=== PATIENT | female | born 2000 | race Caucasian/White ===

== ENCOUNTER 2021-03-19 13:12 | Emergency (ER) | payer OTHER ==
[~2021-03-19] VITALS: Ht 162.6 cm; Wt 57.0 kg
[2021-03-19 14:16] LABS: MICROSCOPIC NOT IND
--- NOTE | 2021-03-19 15:05 | NUR ---
PT TO ROOM AT THIS TIME
--- NOTE | 2021-03-19 15:28 | NUR ---
PT POSTIONED TO COMFORT. ATTACHED TO MONITORS. VSS. NADN. MOTHER AND BROTHER AT BEDSIDE. AWAITING ORDERS
--- NOTE | 2021-03-19 15:28 | NUR ---
RLQ ABDOMINAL PAIN RADIATING TO FLANK X2 DAYS. DENIES PAINFUL URINATION.
--- NOTE | 2021-03-19 15:44 | NUR ---
GINA BOWEN TO BEDSIDE FOR EVALUATION.
[2021-03-19] MEDS ORDERED: ONDANSETRON 2MG/ML, 2ML ONE (16:15)
[2021-03-19] MEDS ORDERED: MORPHINE SULFATE 4 MG/ML, 1ML ONE (16:16)
[2021-03-19] MEDS ORDERED: SODIUM CHLORIDE 0.9% 1,000ML IVBOLUS ONE (16:30)
[2021-03-19] MEDS ORDERED: FAMOTIDINE 20 MG/2 ML IVPush ONE (16:30)
[2021-03-19] MEDS ORDERED: MORPHINE SULFATE 4 MG/ML, 1ML IVPush PRN (16:30)
[2021-03-19] MEDS ORDERED: ONDANSETRON 2MG/ML, 2ML IVPush ONE (16:30)
[2021-03-19 16:52] LABS: BASOPHILS % (AUTO) 0 % (0-1); EOSINOPHILS % (AUTO) 1 % (1-7); LYMPHOCYTES % (AUTO) 31 % (22-44); MD NO; MEAN CORPUSCULAR HEMOGLOBIN 31.1 pg (27.0-34.8); MEAN CORPUSCULAR HGB CONC 34.9 g/dL (32.4-35.8); MEAN PLATELET VOLUME 7.5 fL (7.4-10.4); MONOCYTES % (AUTO) 4 % (2-9); NEUTROPHILS % (AUTO) 64 % (42-75); PLATELET COUNT 288 x10^3/uL (130-400); RED BLOOD COUNT 4.95 x10^6/uL (3.82-5.3); RED CELL DISTRIBUTION WIDTH 12.9 % (9.6-15.2)
[2021-03-19 17:00] LABS: ALANINE AMINOTRANSFERASE 20 U/L (12-78); ALBUMIN 4.6 g/dL (3.4-5.0); ANION GAP 7 mmol/L (5-15); CALCIUM 9.8 mg/dL (8.5-10.1); CHLORIDE 106 mmol/L (98-107)
[2021-03-19 17:04] LABS: ALKALINE PHOSPHATASE 64 U/L (45-117); BILIRUBIN,TOTAL 1.2 mg/dL (0.2-1.0); TOTAL PROTEIN 8.2 g/dL (6.4-8.2)
[2021-03-19] MEDS ORDERED: KETAMINE 10 MG/ML, 20ML IV ONE (17:09)
[2021-03-19] MEDS ORDERED: OMNIPAQUE 350 MG/ML, 100ML BOTTLE ONE (17:27)
--- NOTE | 2021-03-19 17:56 | NUR ---
pt given ketamine as ordered and had severe anxiey and dizziness. dr. king brought to bedside. pt feels better now. vss.
[2021-03-19 18:54] VITALS: BP 94/60
--- NOTE | 2021-03-19 18:58 | NUR ---
Patientgiven discharge instructions and they have confirmed that they understand the instructions. Patient ambulatory with steady gait.
== END 2021-03-19 18:59 | disposition home or self-care (01) ==
LOC: ED 16:48
DX: N83.292 Other ovarian cyst, left side (principal); R10.11 Right upper quadrant pain
CPT/HCPCS: 36415; 74177; 80053; 81003; 83690; 84703; 85025; 96361; 96374; 96375; 99285; J2270; J2405; J7030; Q9967